=== PATIENT | female | born 1980 | race Caucasian/White ===

== ENCOUNTER 2016-10-16 06:14 | Emergency (ER) | payer OTHER ==
[2016-10-16 06:33] VITALS: BMI 39.6
[2016-10-16 07:06] LABS: LEUKOCYTES/URINE 2+ (NEGATIVE); NITRITE/URINE NEG (NEGATIVE); URINE OCCULT BLOOD NEG (NEG/TRACE)
[2016-10-16 07:10] VITALS: TEMP 97.7
[2016-10-16] MEDS ORDERED: KETOROLAC TROMETH 30 MG/ML VIAL IM ONE (07:11)
[2016-10-16] MEDS ORDERED: DEXAMETHASONE PF 10 MG/1 ML VIAL IM ONE (07:11)
--- NOTE | 2016-10-16 07:19 | EDPRACDOC ---
- General Information Chief Complaint: Back Pain Stated Complaint: BACK PAIN Time Seen by Provider: 10/16/16 07:06 Information Source: Patient Mode Of Arrival: Car Home Medications: Home Medications Diazepam [Valium] 5 mg PO BID #10 tablet 10/16/16 Hydrocodone/Acetaminophen [Lortab 5-325 mg Tablet] 1 each PO Q4H PRN #15 tablet 10/16/16 Ketorolac Tromethamine [Toradol] 10 mg PO Q6H PRN #20 tab 10/16/16 Prednisone [Deltasone, Orasone] 1 tabs PO BID #18 tab 10/16/16 Allergies/Adverse Reactions: Allergies Allergy/AdvReac Type Severity Reaction Status Date / Time oxycodone HCl [From Percocet] Allergy Fainting Verified 10/16/16 07:33 - History of Present Illness Onset: 1 week HPI: PT REPORTS UPPER AND LOWER BACK PAIN FOR A WEEK. SHE DOES NOT KNOW WHAT SHE DID TO CAUSE THE PAIN. Pain Location: Reports: Thoracic, Lumbar Pain Radiates To: Reports: None Pain Caused By: Reports: Spontaneous Pain Severity: Reports: Moderate Pain Quality: Reports: Sharp Worsened By: Reports: Movement Associated Signs and Symptoms: Reports: None ED Past Medical History - History Reviewed No Past Medical History: Yes Patient has no past medical history - Patient Medical History Psychological History: Denies: Depression Surgical History: Reports: Cholecystectomy, Other (BTL). Denies: Hysterectomy - Social Medical History Smoking Status: Heavy tobacco smoker (5 or more cigarettes/day or daily pipe/ cigar) ETOH: None Substance Abuse: None Lives In: Home EDM Review of Systems - Review of Systems ROS Negative Except as Marked: Yes All systems reviewed and were negative except as marked Respiratory: Cough Musculoskeletal: Back - Physical Exam Constitutional: Alert (Awake), No apparent distress Oriented to: Time, Person, Place Last recorded Vital Signs: Last Vital Signs Temp 97.7 F 10/16/16 07:09 Pulse 104 10/16/16 07:09 Resp 18 10/16/16 07:09 BP 155/80 10/16/16 07:09 Pulse Ox 99 10/16/16 07:09 Oxygen Pulse Oxygen Saturation 99 O2 Device Oxygen Flow Rate Fraction of Inspired Oxygen ( FIO2) - HEENT Head: Normal ( normocephalic) Eye Exam: Normal (PERRL, EOMI, Sclera white) Oropharynx: Normal (Pharynx:Moist without exudate,Gums-no swelling) ENT EAC: Normal TMJ: Normal Nose: No Symptoms Reported (septum midline) Neck: Normal (FROM, trachea at midline) - Respiratory/Cardiovascular Respiratory: Normal - CTA (BBS clear to auscultation without adventitious sounds ) Cardiovascular: Normal (RRR without murmur, gallop or rub) - GI Auscultation: Normal (NABS) Palpation: Normal (Soft,No rebound or guarding, non distended) Tenderness: Non tender Parra's Sign: Negative - Musculoskeletal Back: Thoracic TTP, Lumbar TTP Extremities: Normal - Integumentary Skin: Normal, Warm, Dry Lymphatics: Normal (no adenopathy) - Neurologic Memory Impaired: Normal Motor Function: Normal (Normal tone, Pulses 2+ No cyanosis or edema, FROM) Cranial Nerve: Normal (CN II-X11 intact sensation, strength 5/5) Cerebellar: Normal Mood Description: Normal Thought: Coherent Perception: Normal - Results Urine Color Yellow 10/16/16 06:25 Urine Clarity Hazy 10/16/16 06:25 Urine pH 5.0 (5.0-8.0) 10/16/16 06:25 Ur Specific [place] 1.020 (1.003-1.035) 10/16/16 06:25 Urine Protein Neg (NEG/TRACE) 10/16/16 06:25 Urine Glucose (UA) Neg (NEGATIVE) 10/16/16 06:25 Urine Ketones Neg (NEGATIVE) 10/16/16 06:25 Urine Occult Blood Neg (NEG/TRACE) 10/16/16 06:25 Urine Nitrite Neg (NEGATIVE) 10/16/16 06:25 Urine Bilirubin Neg (NEGATIVE) 10/16/16 06:25 Urine Urobilinogen <2.0 MG/DL (0-1) 10/16/16 06:25 Ur Leukocyte Esterase 2+ (NEGATIVE) H 10/16/16 06:25 Urine RBC 5-10 (0-5) H 10/16/16 06:25 Urine WBC 2-5 (0-5) 10/16/16 06:25 Ur Epithelial Cells 4+ 10/16/16 06:25 Urine Bacteria Few (NEG/FEW) 10/16/16 06:25 Urine Mucus Occ (NEG/OCC) 02/06/17 06:25 Urine Test Neg (NEGATIVE) 10/16/16 06:25 Lab Results 10/16/16 10/16/16 06:25 06:25 Urine Color Yellow Urine Clarity Hazy Urine pH 5.0 Ur Specific [place] 1.020 Urine Protein Neg Urine Glucose (UA) Neg Urine Ketones Neg Urine Occult Blood Neg Urine Nitrite Neg Urine Bilirubin Neg Urine Urobilinogen <2.0 Ur Leukocyte Esterase 2+ H Urine RBC 5-10 H Urine WBC 2-5 Ur Epithelial Cells 4+ Urine Bacteria Few Urine Mucus Occ Urine Test Neg - Diagnostic Imaging Chest Image interpreted by: Radiologist No active cardiopulmonary disease Decision Time to Discharge: 07:42 - Departure Yes I personally saw and evaluated the patient. Disposition: Home Condition: Fair Final Diagnosis: THORACIC AND LUMBAR MUSCLE STRAIN Instructions: Thoracic (Lumbar) Strain Education/Counseling Given To: Patient Education/Counseling Given Regarding: Diagnosis, Treatment, Follow Up Referrals: None,No Provider [Primary Care Provider] - One Week Arturo Whitaker MD [Staff Physician] - One Week Prescriptions: New Diazepam [Valium] 5 mg PO BID #10 tablet Hydrocodone/Acetaminophen [Lortab 5-325 mg Tablet] 1 each PO Q4H PRN #15 tablet PRN Reason: Pain Ketorolac Tromethamine [Toradol] 10 mg PO Q6H PRN #20 tab PRN Reason: Pain Prednisone [Deltasone, Orasone] 1 tabs PO BID #18 tab Forms: Excuse Note
--- NOTE | 2016-10-16 07:41 | DIRPT ---
CLINICAL DATA: Cough for 1 week EXAM: CHEST 2 VIEW COMPARISON: 08/12/2016 FINDINGS: The heart size and mediastinal contours are within normal limits. Both lungs are clear. The visualized skeletal structures are unremarkable. IMPRESSION: No active cardiopulmonary disease. Electronically Signed By: Delbert Marie M.D. On: 10/16/2016 07:38
[2016-10-16 08:25] VITALS: BP 137/76; PULSE 92
== END 2016-10-16 08:18 | disposition home or self-care (01) ==
LOC: ED 06:14
DX: S29.012A Strain of muscle and tendon of back wall of thorax, initial encounter (principal); S39.012A Strain of muscle, fascia and tendon of lower back, initial encounter; X58.XXXA Exposure to other specified factors, initial encounter; F17.200 Nicotine dependence, unspecified, uncomplicated
CPT/HCPCS: 71020; 81001; 81025; 96372; 99284; J1100; J1885